=== PATIENT | female | born 1940 | race Caucasian/White ===

== ENCOUNTER → 2016-06-27 | Outpatient (CLI) | payer MEDICARE, OTHER ==
--- NOTE | 2016-06-28 10:39 | REP ---
Chest x-ray: Two views. History: Hypertension. Comparison study April 09, 2010. Findings: A bipolar pacemaker remains in the right heart via the left side. Heart is not enlarged. The aorta is slightly tortuous. The lungs are well inflated and clear. Pleural angles are sharp. There are degenerative changes in the thoracic spine as before. Impression: Pacemaker in place. Otherwise no active disease. Signed by Gurvinder Henson MD 06/28/2016 11:05 A
== END ==
LOC: M WUC 17:05
PROVIDERS: ATTEND Nurse Practitioner Family
DX: I10 Essential (primary) hypertension (principal)

== ENCOUNTER → 2016-07-04 | Outpatient (CLI) | payer MEDICARE, OTHER ==
--- NOTE | 2016-07-04 10:54 | REPMRS ---
Patient History The patient states she had a clinical breast exam in Patient is postmenopausal. Family history of colorectal cancer in mother at age 50 or over and colorectal cancer in maternal grandmother at age 50 or over. Took unspecified hormones for 20 years. Digital Woman Screen Mammo: July 04, 2016 - Exam #: [id number] Bilateral CC and MLO view(s) were taken. Technologist: Angelina Andino, Technologist Prior study comparison: July 04, 2015, digital woman screen mammo performed at [facility]. June 23, 2014, digital woman screen mammo performed at [facility]. June 22, 2013, digital woman screen mammo performed at [facility]. FINDINGS: The breast tissue is heterogeneously dense. This may lower the sensitivity of mammography. There is a moderate amount of heterogeneously dense fibroglandular tissue which is fairly symmetric. There is a pacemaker power plant projecting over the left axilla on the MLO view.There is no interval development of dominant mass, architectural distortion, or clustered microcalcification typical of malignancy. There has been no change in the appearance of the mammogram from the prior studies. ASSESSMENT: BI-RADS/ACR category 1 mammogram. Negative. Recommendation Routine screening mammogram of both breasts in 1 year (for women over age 40). This mammogram was interpreted with the aid of an FDA-approved computer-aided dectection system. Electronically Signed By: Karsten Henson MD 07/04/16 [id number]
--- NOTE | 2016-07-07 11:13 | DEXA ---
AP SPINE L1 - L4 1.408 1.7 3.4 LT FEMUR TOTAL 0.876 -1.0 0.6 RT FEMUR TOTAL 0.897 -0.9 0.7 TOTAL BODY TOTAL OTHER DUAL FEMUR FRAX* ASSESSMENT Risk factors: Premature menopause. 10 year probability of fracture Major osteoporotic fracture 8.8 % Hip fracture 1.0 % COMMENTS: Normal bone densitometry of the spine. Normal bone densitometry of the right hip. There is low bone density of the left hip. The density of the spine is increased 4.5% since the initial exam on 07/2007. The spine density is increased 0.1% since the most recent exam on 06/2013. The density of the left hip has decreased 2.1% since the initial exam on 07/2007. The density of the left hip has decreased 1.2% since the most recent exam on 2013. The density of the right hip has decreased 3.0% since the initial exam on 2007. The density of the right hip has decreased 1.4% since the most recent exam on 2013. FOLLOW-UP: Recommendation for the next bone density exam: 2 years. AMBAR
== END ==
LOC: M WHC 09:42
PROVIDERS: ATTEND Nurse Practitioner Women's Health
DX: Z12.31 Encounter for screening mammogram for malignant neoplasm of breast (principal); Z13.820 Encounter for screening for osteoporosis; Z78.0 Asymptomatic menopausal state; Z80.0 Family history of malignant neoplasm of digestive organs
CPT/HCPCS: 77080; G0202; G0463

== ENCOUNTER → 2016-09-27 | Outpatient (REF) | payer MEDICARE, OTHER | LOC: M LAB REF 18:23 | PROVIDERS: ATTEND Physician Assistant Medical | DX: J02.9 Acute pharyngitis, unspecified (principal) ==

== ENCOUNTER → 2017-08-12 | Outpatient (CLI) | payer MEDICARE, OTHER | LOC: M WHC 09:01 | DX: Z12.31 Encounter for screening mammogram for malignant neoplasm of breast (principal); Z78.0 Asymptomatic menopausal state; Z80.0 Family history of malignant neoplasm of digestive organs; Z92.0 Personal history of contraception; R92.8 Other abnormal and inconclusive findings on diagnostic imaging of breast | CPT/HCPCS: 77067 ==

== ENCOUNTER → 2018-09-14 | Outpatient (CLI) | payer MEDICARE, OTHER ==
[~2018-09-14] MED LIST: APAP500T10 PO; ASPI81TA26 PO; EZET1TAB7 PO; GLUCTAB6 PO; MULT1TAB10 PO; NAPR-855 PO; SERT-138 PO; VITA100067 PO; VITA500T3 PO
--- NOTE | 2018-09-14 11:03 | REPMRS ---
Patient History The patient states she had a clinical breast exam in 09/2018. Family history of colorectal cancer at age 50 or over in mother, colorectal cancer at age 50 or over in maternal grandmother. Took unspecified hormones for 20 years. Digital Woman Screen Mammo: September 14, 2018 - Exam #: [id number] Bilateral CC and MLO view(s) were taken. Technologist: Melissa Ayala, Technologist Prior study comparison: August 12, 2017, digital woman screen mammo performed at [facility]. July 04, 2016, digital woman screen mammo performed at [facility]. July 04, 2015, digital woman screen mammo performed at [facility]. FINDINGS: The breast tissue is heterogeneously dense. This may lower the sensitivity of mammography. Pacemaker power plant is visible in the left axilla. There is a moderate amount of heterogeneously dense fibroglandular tissue which is fairly symmetric. There is no interval development of dominant mass, architectural distortion, or clustered microcalcification typical of malignancy. There has been no change in the appearance of the mammogram from the prior studies. 3-D tomosynthesis shows no additional findings. Assessment: BI-RADS/ACR category 2 mammogram. Benign Findings. Recommendation Routine screening mammogram of both breasts in 1 year (for women over age 40). This patient's Lifetime Breast Cancer RIsk is estimated at 2.6 %. This mammogram was interpreted with the aid of an FDA-approved computer-aided dectection system. Electronically Signed By: Karsten Henson MD 09/14/18 [id number]
== END ==
LOC: M WHC 08:27
PROVIDERS: ATTEND Nurse Practitioner Women's Health
DX: Z12.31 Encounter for screening mammogram for malignant neoplasm of breast (principal); Z80.0 Family history of malignant neoplasm of digestive organs; Z92.29 Personal history of other drug therapy; Z95.0 Presence of cardiac pacemaker
CPT/HCPCS: 77063; 77067; G0463

== ENCOUNTER → 2018-09-28 | Outpatient (CLI) | payer MEDICARE, OTHER ==
[2018-09-28 09:54] LABS: HEMATOCRIT 38.8 % (36.0-47.0); HEMOGLOBIN 12.5 g/dl (12.0-15.5); MEAN CORPUSCULAR HGB CONC 32.2 g/dl (32.0-36.5); PLATELET COUNT, AUTOMATED 274 10^3/uL (150-450); RED BLOOD COUNT 4.31 10^6/uL (4.00-5.40); WHITE BLOOD COUNT 4.6 10^3/uL (4.0-10.0)
[2018-09-28 10:10] LABS: INR 1.06; PROTHROMBIN TIME 13.9 SECONDS (12.1-14.4)
[2018-09-28 10:14] LABS: ALBUMIN 4.3 GM/DL (3.2-5.2); ALT/SGPT 46 U/L (12-78); BILIRUBIN,TOTAL 0.4 MG/DL (0.2-1.0); BLOOD UREA NITROGEN 21 MG/DL (7-18); CALCIUM LEVEL 8.9 MG/DL (8.8-10.2); CARBON DIOXIDE LEVEL 29 MEQ/L (21-32); CHLORIDE LEVEL 107 MEQ/L (98-107); CREATININE FOR GFR 0.83 MG/DL (0.55-1.30); GLOMERULAR FILTRATION RATE > 60.0 (>39); GLUCOSE, FASTING 101 MG/DL (70-100); POTASSIUM SERUM 4.3 MEQ/L (3.5-5.1); SODIUM LEVEL 139 MEQ/L (136-145)
--- NOTE | 2018-09-28 10:38 | REP ---
Chest two views HISTORY: Preop Comparison: 06/27/2016 The lungs are clear. The heart is normal in size. The pulmonary vasculature is normal in appearance. Degenerative change is present in the thoracic spine. A cardiac pacemaker is present. IMPRESSION: No acute disease. Electronically Signed by Aleksey Ricci MD 09/28/2018 10:29 A
[2018-09-28 14:24] LABS: ERYTHROCYTE SEDIMENTATION RATE 25 mm/hr (0-30)
== END ==
LOC: M LAB 09:23
PROVIDERS: ATTEND Family Medicine
DX: Z01.818 Encounter for other preprocedural examination (principal); M16.11 Unilateral primary osteoarthritis, right hip; Z79.82 Long term (current) use of aspirin

== ENCOUNTER 2018-10-08 06:56 | Inpatient (IN) | payer MEDICARE, OTHER ==
--- NOTE | 2018-10-01 10:30 | HPE ---
DATE OF ADMISSION: 10/08/2018 CHIEF COMPLAINT: Right hip pain. ATTENDING PHYSICIAN: Dr. Jos Quintana HISTORY: This is a pleasant 78-year-old female patient with progressively worsening right hip pain and stiffness. She has failed to improve with conservative management. She has [id number] arthritis in the right hip. She has pain with weightbearing activities, daily activities around the house, as well as with going up and down stairs. She has elected for surgery for her continued symptoms. She has consented for a right total hip arthroplasty by Dr. Quintana. Medical optimization pending. ALLERGIES: NO KNOWN DRUG ALLERGIES. CURRENT MEDICATIONS: Daily multivitamin. She takes a daily B12 tablet as well. She takes an aspirin 81 mg once a day, she will discontinue that 5 days prior to surgery. Vytorin 10/40 mg 1 tablet once per day, Zoloft 100 mg one tablet one once per day, vitamin D3, multiple eyedrops, glucosamine chondroitin, [id number]-[id number] Aleve. She will discontinue the Aleve 5 days prior to surgery. She was counseled about discontinuing all NSAIDs five days prior to surgery. Medical conditions include coronary artery disease, tachy-lv syndrome, elevated cholesterol, glaucoma, depression, seasonal allergies. SURGICAL PROCEDURES: She has had a pacemaker implanted. She has had a partial hysterectomy. FAMILY HISTORY: Noncontributory. SOCIAL HISTORY: She does not smoke. She is retired. She does not use alcohol. REVIEW OF SYSTEMS: Denies fever or chills. Denies chest pain, shortness breath or cough. Denies difficulty breathing. Denies abdominal pain. Denies nausea or vomiting. Notes persistent pain in her hip with weightbearing activities and activities of daily living. PHYSICAL EXAMINATION: Physical exam today reveals a well-nourished, well-developed female patient. She ambulates with a slight limping gait favoring the left side. Skin around the right hip is intact. No erythema, edema or ecchymosis. She has some irritability with hip range of motion. Well-perfused right lower extremity. Dorsalis pedis, posterior tibial pulses are palpable. Neck is supple without adenopathy or jugular venous distention (JVD). Lungs are clear to auscultation without rales or wheeze. Heart has regular rate and rhythm. Abdomen is soft and bowel sounds are present. Vital signs: Height 5.2 inches, weight 140 pounds, temperature 97.7, blood pressure 122/63, pulse 70, respirations 18. LABORATORY DATA: WBC count of 4.6, RBC count of 4.3, hemoglobin 12.5, hematocrit 38.8, glucose 101, BUN 20, creatinine 0.83, sodium 134, potassium 4.3, sed rate of 25. Chest x-ray showed no acute cardiopulmonary process noted. Electrocardiogram (EKG) showed sinus rhythm with pacemaker. IMPRESSION: Symptomatic osteoarthritis of her right hip. PLAN: She has consented for a right total hip arthroplasty by Dr. Quintana.
[2018-10-08] VITALS (7 sets, daily range): BP systolic 112–140; BP diastolic 48–68; O2SAT 98
[~2018-10-08] VITALS: Ht 160 cm; Wt 68.8 kg
[2018-10-08] MEDS ORDERED: ACETAMINOPHEN 500 MG TAB PO ONE (07:15)
[2018-10-08] MEDS ORDERED: LR 1,000 ML IV ONE (07:15)
[2018-10-08] MEDS ORDERED: MULTCAP PO (07:36)
[2018-10-08] MEDS ORDERED: VITAD1000T PO (07:36)
[2018-10-08] MEDS ORDERED: ONDANSETRON 4MG/2ML VIAL (J2405) As Ordered ONE ×2 (08:17→12:32)
[2018-10-08] MEDS ORDERED: MIDAZOLAM INJ 2 MG/2 ML VIAL (J2250) As Ordered ONE (08:17)
[2018-10-08] MEDS ORDERED: LIDOCAINE 2% INJ 100 MG/5 ML SDV (FOR ANES.) As Ordered ONE (08:17)
[2018-10-08] MEDS ORDERED: PROPOFOL 200 MG/20 ML VIAL As Ordered ONE (08:17)
[2018-10-08] MEDS ORDERED: fentaNYL 100 MCG/2 ML INJECTION (J3010) As Ordered ONE (08:18)
[2018-10-08] MEDS ORDERED: ceFAZolin 1GM INJ (J0690 PER 500MG) As Ordered ONE (09:43)
[2018-10-08] MEDS ORDERED: MORPHINE 1MG/ML IN 0.9% NACL 100ML IV BAG As Ordered ONE (11:59)
[2018-10-08] MEDS ORDERED: METOCLOPRAMIDE INJ 10MG/2ML VIAL (J2765) As Ordered ONE (12:32)
--- NOTE | 2018-10-08 12:38 | REP ---
Portable AP lateral right hip History: Postop The patient is status post right total hip replacement. There is no acute fracture or dislocation. Subcutaneous air and surgical afshin are present in the overlying soft tissue. Impression: The patient is status post right total hip replacement. There is anatomic alignment. Electronically Signed by Aleksey Ricci MD 10/08/2018 12:29 P
[2018-10-08] MEDS ORDERED: MORPHINE 1MG/ML IN 0.9% NACL 100ML IV BAG IV PRN (13:30)
[2018-10-08] MEDS ORDERED: ONDANSETRON 4MG/2ML VIAL (J2405) IV PRN ×2 (13:30)
[2018-10-08] MEDS: LR 1,000 ML IV SCH (13:30)
[2018-10-08] MEDS ORDERED: ACETAMINOPHEN TAB 650MG DOSE (2X325MG) PO PRN (13:30)
[2018-10-08] MEDS ORDERED: NALBUPHINE HCL 10 MG/ML AMP (J2300) IV PRN (13:30)
[2018-10-08] MEDS ORDERED: NALOXONE INJ 0.4 MG/1 ML VIAL (J2310) IV PRN (13:30)
[2018-10-08] MEDS ORDERED: diphenhydrAMINE INJ 50MG/ML VIAL (J1200) IV PRN (13:30)
[2018-10-08] MEDS ORDERED: METOCLOPRAMIDE INJ 10MG/2ML VIAL (J2765) IV PRN (13:30)
[2018-10-08] MEDS ORDERED: fentaNYL 100 MCG/2 ML INJECTION (J3010) IV PRN (13:30)
[2018-10-08] MEDS ORDERED: LR 1,000 ML IV SCH (13:30)
[2018-10-08] MEDS ORDERED: EPIDURAL/PCA KEYS XX PRN (13:30)
[2018-10-08] MEDS ORDERED: PERCOCET 5MG/325MG TAB PO PRN (13:30)
[2018-10-08] MEDS ORDERED: FLEET ENEMA PR PRN (13:30)
--- NOTE | 2018-10-08 15:39 | CR.PDOC ---
General Date of Consultation: October 08, 2018 Consultation REASON FOR CONSULTATION/CHIEF COMPLAINT: Medical management HISTORY OF PRESENT ILLNESS: 78 yo female POD #0 for right total hip arthroplasty. Consulted by orthopedics for management of medical issues. Currently denies any complaints. Denies chest pain, shortness of breath, headaches, N/V/D, abdominal pain. ALLERGIES: Please see below. HOME MEDICATIONS: Please see below. PAST MEDICAL HISTORY: 1. CAD(?) 2. tachy lv syndrome s/p PPM 3. DLP 4. glaucoma 5. depression 6. seasonal allergies PAST SURGICAL HISTORY: 1. PPM 2. partial hysterectomy REVIEW OF SYSTEMS: Negative except as per HPI. PHYSICAL EXAMINATION: VITAL SIGNS: Please see below. General: NAD, lying comfortably in bed, elderly HEENT: NC/AT, EOMI, PERRL Lungs: CTA B/L Heart: +S1S2, RRR Abd: soft, NT, +BS LABORATORY DATA: Please see below. ASSESSMENT/PLAN: 78 yo female POD #0 for right total hip failing conservative management: #right total hip - follow as per primary team - ortho #CAD #DLP - ezetimibe/simvastatin #glaucoma #depression - sertraline #seasonal allergies #DVT prophylaxis - as per ortho Vital Signs/I&O Vital Signs Date Time Temp Pulse Resp B/P (MAP) Pulse Ox O2 Delivery O2 Flow Rate FiO2 10/08/18 14:40 98.3 73 16 124/55 (78) 99 2 Allergies Coded Allergies: No Known Allergies (Verified , 12/12/02) Home Medications Scheduled Acetaminophen (Acetaminophen) 500 Mg Tab, 500 MG PO QHS, (Reported) Aspirin (Aspirin EC) 81 Mg Tab, 81 MG PO DAILY, #30 (Reported) Cyanocobalamin (Vitamin B-12) (Vitamin B-12) 500 Mcg Tab, 1,000 MCG PO DAILY, (Reported) Ezetimibe/Simvastatin (Ezetimibe-Simvastatin 10-40 mg) 1 Tab Tab, 1 TAB PO DAILY, (Reported) Gluc Kaufman/Chondro Kaufman A/Vit C/Mn (Glucosamine Chondroitin Tab) 1 Tab Tab, 2 TAB PO DAILY, (Reported) Multivitamin (Multivitamins) 1 Each Capsule, 1 CAP PO DAILY, (Reported) Sertraline HCl (Sertraline HCl) 100 Mg Tab, 100 MG PO DAILY, (Reported) Vitamin D (Vitamin D3) 1,000 Unit Tablet, 1,000 UNITS PO DAILY, (Reported) Scheduled PRN Naproxen (Naproxen) 375 Mg Tab, 375 MG PO PRN PRN for PAIN, (Reported) JEREMY BERNSTEIN MD October 08, 2018 15:39
--- NOTE | 2018-10-08 19:15 | RO ---
DATE OF PROCEDURE: 10/08/2018 PREPROCEDURE DIAGNOSIS: Right hip degenerative arthritis. POSTPROCEDURE DIAGNOSIS: Right hip degenerative arthritis. PROCEDURE: Right total hip arthroplasty using a size 5 standard Bussey stem with a +5 neck, 36 head, 52 mm cup with a 36 mm neutral liner. Prosthesis made by [employer]. SURGEON: Dr. Ruchi Quintana CREDIT AND COLLECTIONS ANALYST: Mr. Golden Rivers ANESTHESIA: Spinal. ESTIMATED BLOOD LOSS: 200 mL. SPECIMENS: Femoral head. COMPLICATIONS: None. DESCRIPTION OF PROCEDURE: Antibiotics were given intravenously preoperatively, then successful spinal anesthetic was induced. She was placed in the lateral decubitus position, right hip was upper most, down leg well padded, especially the peroneal nerve, axillary roll was utilized. Right hip area was then carefully prepped and draped in the usual sterile fashion. After appropriate time-out, a longitudinal incision was made for a direct anterolateral approach to the hip. Bovie cautery was used to coagulate crossing vessels down to the tensor fascia, which was divided in line with the skin incision. Then, we split the gluteus medius anterior one-third, posterior two-third junction, dissecting down to the gluteus minimus and anterior hip capsule and carefully dissected down into the joint, carefully dissected those tissues off the anterior aspect of the trochanter as we dislocated the hip anteriorly and placed the leg in the leg bag. Starter reamer was placed in the piriformis fossa, followed by the canal finding reamer, then the lateralizing reamer, then we reamed up to a size 5. Femoral neck osteotomy performed. We broached up to a size 5. We then exposed the acetabulum and performed a labral excision 360 degrees, then began reaming beginning with a 44, advanced up to a 51. The 52 trial fit nicely, thus we asked for the 52 cup, irrigated and then we placed the cup using the extramedullary alignment jig to estimate our abduction and version. I then placed the polyethylene, made sure it seated properly, then exposed the proximal femur again, irrigated out the femoral canal, placed a #5 broach, trialed with first a 1.5 neck length and then we felt there was a little bit excess telescoping but the hip was very stable to flexion internal rotation and extension external rotation; thus, we elected to go with a +5. We removed the trial, copiously irrigated out once again, and then placed the real #5 Bussey stem, dried the trunnion, placed a +5 x 36 mm diameter head, reduced the hip. Irrigated again copiously, closed the gluteus minimus and medius back in layers anatomically with interrupted #1 PDS sutures, irrigated again between layers, closed the tensor fascia with interrupted #1 PDS suture and a running #1 Stratafix. Irrigated again between layers, closed the deep subdermal tissues with interrupted #2-0 PDS suture, skin was closed with afshin, covered by an Optifoam and dry sterile bulky dressing. She was then turned supine, then transferred to the recovery room in stable condition. There were no intraoperative complications. Mr. Golden Rivers was critical to the success of this difficult surgery by helping with appropriate soft tissue retraction, helped to reduce and dislocate the hip, helped to close the wound, amongst many other tasks to allow me to perform the operation smoothly and efficiently.
[2018-10-08] MEDS ORDERED: EZETIMIBE 10 MG TAB (ZETIA) PO SCH (21:00)
[2018-10-08] MEDS ORDERED: SIMVASTATIN 40 MG TAB PO SCH (21:00)
[2018-10-09 01:00] VITALS: O2SAT 96
[2018-10-09 02:00] VITALS: BP 148/69
[2018-10-09] MEDS: LR 1,000 ML IV SCH (02:13)
[2018-10-09 06:00] VITALS: BP 134/63
[2018-10-09] MEDS ORDERED: PERCOCET 5MG/325MG TAB PO PRN ×2 (06:15)
[2018-10-09] MEDS ORDERED: ONDANSETRON 4 MG TAB (S0181) PO PRN (06:15)
[2018-10-09 06:36] LABS: HEMATOCRIT 32.4 % (36.0-47.0); HEMOGLOBIN 10.5 g/dl (12.0-15.5); MEAN CORPUSCULAR HEMOGLOBIN 29.7 pg (27.0-33.0); MEAN CORPUSCULAR HGB CONC 32.4 g/dl (32.0-36.5); MEAN CORPUSCULAR VOLUME 91.5 fl (80.0-96.0); PLATELET COUNT, AUTOMATED 218 10^3/uL (150-450); RED BLOOD COUNT 3.54 10^6/uL (4.00-5.40); WHITE BLOOD COUNT 9.3 10^3/uL (4.0-10.0)
[2018-10-09 06:56] LABS: CALCIUM LEVEL 8.8 MG/DL (8.8-10.2); CREATININE FOR GFR 0.97 MG/DL (0.55-1.30); GLOMERULAR FILTRATION RATE 59.4 (>39); POTASSIUM SERUM 4.3 MEQ/L (3.5-5.1)
[2018-10-09] MEDS ORDERED: XARE10TA PO (07:38)
[2018-10-09] MEDS ORDERED: PERC5TAB12 PO (07:38)
[2018-10-09] MEDS ORDERED: MIRALAX *UNIT DOSE* 17GM PACKET PO SCH (09:00)
[2018-10-09] MEDS ORDERED: MOM 30ML SUSPENSION UDC PO SCH (09:00)
[2018-10-09] MEDS ORDERED: SERTRALINE 100 MG TAB PO SCH (09:00)
[2018-10-09 10:13] VITALS: BP 127/62
[2018-10-09 14:00] VITALS: BP 142/65
[2018-10-09] MEDS ORDERED: RIVAROXABAN 10 MG TAB (XARELTO) PO SCH (18:00)
== END 2018-10-09 15:25 | disposition home or self-care (01) | DRG 470 ==
LOC: M OR 06:56 → MERGE 07:30 → M MS5PR 14:53
PROVIDERS: ADMIT Orthopaedic Surgery; ATTEND Orthopaedic Surgery
PROC: 0SR902Z Replacement of Right Hip Joint with Metal on Polyethylene Synthetic Substitute, Open Approach (ICD-10-PCS; principal; 2018-10-08 09:55)
DX: M16.11 Unilateral primary osteoarthritis, right hip (principal); I25.10 Atherosclerotic heart disease of native coronary artery without angina pectoris; E78.00 Pure hypercholesterolemia, unspecified; H40.9 Unspecified glaucoma; F32.9 Major depressive disorder, single episode, unspecified; R26.89 Other abnormalities of gait and mobility; J30.2 Other seasonal allergic rhinitis; Z95.0 Presence of cardiac pacemaker; Z79.82 Long term (current) use of aspirin; Z79.899 Other long term (current) drug therapy

== ENCOUNTER → 2019-03-28 | Outpatient (CLI) | payer MEDICARE, OTHER ==
[~2019-03-28] MED LIST changes: +CHOL100029 PO; +CYAN500T8 PO; -EZET1TAB7 PO; +EZET1TAB8 PO; +MULTCAP PO; +PERC5TAB12 PO; -VITA500T3 PO; +XARE10TA PO
[2019-03-28 10:48] LABS: ALBUMIN 4.1 GM/DL (3.2-5.2); ALT/SGPT 37 U/L (12-78); BILIRUBIN,TOTAL 0.4 MG/DL (0.2-1.0); BLOOD UREA NITROGEN 17 MG/DL (7-18); CALCIUM LEVEL 9.5 MG/DL (8.8-10.2); CARBON DIOXIDE LEVEL 30 MEQ/L (21-32); CHLORIDE LEVEL 107 MEQ/L (98-107); CHOLESTEROL LEVEL 163 MG/DL (<200); CHOLESTEROL RISK RATIO 3.134 (<5); CREATININE FOR GFR 0.92 MG/DL (0.55-1.30); FREE T4 0.78 NG/DL (0.76-1.46); GLOMERULAR FILTRATION RATE > 60.0 (>39); GLUCOSE, FASTING 98 MG/DL (70-100); HDL CHOLESTEROL 52 MG/DL (>40); LDL CHOLESTEROL 62 MG/DL (<100); NON-HDL-C 111 MG/DL; POTASSIUM SERUM 4.5 MEQ/L (3.5-5.1); SODIUM LEVEL 140 MEQ/L (136-145); TRIGLYCERIDES LEVEL 246 MG/DL (<150)
[2019-03-28 11:02] LABS: TOTAL 25(OH) VITAMIN D 49.9 NG/ML (30.0-100.0)
== END ==
LOC: M LAB 09:07
PROVIDERS: ATTEND Nurse Practitioner Family
DX: E78.2 Mixed hyperlipidemia (principal); F32.9 Major depressive disorder, single episode, unspecified; Z79.899 Other long term (current) drug therapy

== ENCOUNTER → 2019-09-26 | Outpatient (REF) | payer MEDICARE, OTHER ==
[2019-09-26 11:06] LABS: ALBUMIN 4.1 GM/DL (3.2-5.2); ALT/SGPT 40 U/L (12-78); BILIRUBIN,TOTAL 0.4 MG/DL (0.2-1.0); BLOOD UREA NITROGEN 21 MG/DL (7-18); CALCIUM LEVEL 9.4 MG/DL (8.8-10.2); CARBON DIOXIDE LEVEL 27 MEQ/L (21-32); CHLORIDE LEVEL 107 MEQ/L (98-107); CHOLESTEROL LEVEL 150 MG/DL (<200); CHOLESTEROL RISK RATIO 3.061 (<5); CREATININE FOR GFR 0.89 MG/DL (0.55-1.30); GLOMERULAR FILTRATION RATE > 60.0 (>39); GLUCOSE, FASTING 97 MG/DL (70-100); HDL CHOLESTEROL 49 MG/DL (>40); LDL CHOLESTEROL 65 MG/DL (<100); NON-HDL-C 101 MG/DL; POTASSIUM SERUM 4.7 MEQ/L (3.5-5.1); SODIUM LEVEL 139 MEQ/L (136-145); TOTAL PROTEIN 7.6 GM/DL (6.4-8.2); TRIGLYCERIDES LEVEL 180 MG/DL (<150)
== END ==
LOC: M PLALAB 09:01
PROVIDERS: ATTEND Nurse Practitioner Family
DX: E78.2 Mixed hyperlipidemia (principal)

== ENCOUNTER → 2019-12-06 | Outpatient (CLI) | payer MEDICARE, OTHER ==
--- NOTE | 2019-12-06 11:16 | REPMRS ---
Patient History The patient states she had a clinical breast exam in November 2019.Family history of colorectal cancer at age 50 or over in mother, colorectal cancer at age 50 or over in maternal grandmother. Took unspecified hormones for 20 years. Digital Woman Screen Mammo: December 06, 2019 - Exam #: [id number] Bilateral CC and MLO view(s) were taken. Technologist: Chelsea Lawson, Technologist Prior study comparison: September 14, 2018, bilateral digital woman screen mammo performed at [facility]. August 12, 2017, digital woman screen mammo performed at [facility]. July 04, 2016, digital woman screen mammo performed at [facility]. FINDINGS: The breast tissue is heterogeneously dense. This may lower the sensitivity of mammography. [facility]. There is a pacemaker power plant projecting over the left axilla on the MLO view. There is a moderate amount of heterogeneously dense fibroglandular tissue which is fairly symmetric. There is no interval development of dominant mass, architectural distortion, or grouped microcalcification typical of malignancy. There has been no change in the appearance of the mammogram from the prior studies. 3-D tomosynthesis shows no additional findings. Assessment: BI-RADS/ACR category 2 mammogram. Benign Findings. Recommendation Routine screening mammogram of both breasts in 1 year (for women over age 40). This patient's Lifetime Breast Cancer RIsk is estimated at 2.3 %. This mammogram was interpreted with the aid of an FDA-approved computer-aided dectection system. Electronically Signed By: Karsten Henson MD 12/06/19 [id number]
--- NOTE | 2019-12-09 14:13 | DEXA ---
AP SPINE L1 - L4 1.386 1.5 3.3 LT FEMUR TOTAL 0.842 -1.3 0.7 LT NECK RT FEMUR TOTAL RT NECK TOTAL BODY TOTAL OTHER COMMENTS: Normal bone densitometry of the spine. There is low bone density of the left hip. The density of the spine is increased 2.8% since the initial exam on 07/22/2007. The decreased 1.6% since the most recent exam on 07/04/2016. The density of the left hip has decreased 5.9% since the initial exam on 07/22/2007. The density of the left hip has decreased 3.9% since the most recent exam on 07/04/2016. Hip replaced last year 2018. FOLLOW-UP: Recommendation for the next bone density exam: 2 years. AMBAR
== END ==
LOC: M WHC 09:19
PROVIDERS: ATTEND Nurse Practitioner Women's Health
DX: Z12.31 Encounter for screening mammogram for malignant neoplasm of breast (principal); Z78.0 Asymptomatic menopausal state; M85.80 Other specified disorders of bone density and structure, unspecified site; Z80.0 Family history of malignant neoplasm of digestive organs; Z92.29 Personal history of other drug therapy; Z95.0 Presence of cardiac pacemaker
CPT/HCPCS: 77063; 77067; 77080; G0463

== ENCOUNTER → 2020-03-13 | Outpatient (REF) | payer MEDICARE, OTHER ==
[2020-03-13 14:48] LABS: ALBUMIN 4.3 GM/DL (3.2-5.2); ALT/SGPT 41 U/L (12-78); BILIRUBIN,TOTAL 0.4 MG/DL (0.2-1.0); BLOOD UREA NITROGEN 20 MG/DL (7-18); CALCIUM LEVEL 9.2 MG/DL (8.8-10.2); CARBON DIOXIDE LEVEL 28 MEQ/L (21-32); CHLORIDE LEVEL 107 MEQ/L (98-107); CHOLESTEROL LEVEL 166 MG/DL (<200); CHOLESTEROL RISK RATIO 2.964 (<5); FREE T4 0.81 NG/DL (0.76-1.46); GLOMERULAR FILTRATION RATE > 60.0 (>39); GLUCOSE, FASTING 102 MG/DL (70-100); HDL CHOLESTEROL 56 MG/DL (>40); LDL CHOLESTEROL 69 MG/DL (<100); NON-HDL-C 110 MG/DL; POTASSIUM SERUM 4.9 MEQ/L (3.5-5.1); SODIUM LEVEL 140 MEQ/L (136-145); TOTAL PROTEIN 7.6 GM/DL (6.4-8.2); TRIGLYCERIDES LEVEL 207 MG/DL (<150)
== END ==
LOC: M PLALAB 08:37
PROVIDERS: ATTEND Nurse Practitioner Family
DX: E78.2 Mixed hyperlipidemia (principal); F32.9 Major depressive disorder, single episode, unspecified

== ENCOUNTER → 2020-03-14 | Outpatient (REF) | payer MEDICARE, OTHER ==
[2020-03-15 14:50] LABS: CREATININE, URINE 43.5 MG/DL; MALB URINE SIEMENS < 5.0 MG/L; MAU/CREAT RATIO 11.4 MCG/MG (0.0-30.0)
== END ==
LOC: M SFHCPLAZ 13:30
PROVIDERS: ATTEND Nurse Practitioner Family
DX: E78.2 Mixed hyperlipidemia (principal)

== ENCOUNTER → 2020-09-04 | Outpatient (REF) | payer MEDICARE, OTHER ==
[~2020-09-04] MED LIST changes: +BRIM1OPD OU; +CYAN500T14 PO; -CYAN500T8 PO; +LATA0.0015 OU
== END ==
LOC: M SFHCWAGY 17:02
PROVIDERS: ATTEND Nurse Practitioner Women's Health
DX: R35.0 Frequency of micturition (principal)
CPT/HCPCS: 81002; 87086; G0463

== ENCOUNTER → 2020-09-17 | Outpatient (REF) | payer MEDICARE, OTHER ==
[~2020-09-17] MED LIST changes: -BRIM1OPD OU; -LATA0.0015 OU
[2020-09-17 11:28] LABS: ALT/SGPT 42 U/L (12-78); BILIRUBIN,TOTAL 0.3 MG/DL (0.2-1.0); BLOOD UREA NITROGEN 21 MG/DL (7-18); CALCIUM LEVEL 9.6 MG/DL (8.8-10.2); CARBON DIOXIDE LEVEL 27 MEQ/L (21-32); CHLORIDE LEVEL 108 MEQ/L (98-107); CHOLESTEROL LEVEL 155 MG/DL (<200); CHOLESTEROL RISK RATIO 2.719 (<5); CREATININE FOR GFR 0.79 MG/DL (0.55-1.30); GLOMERULAR FILTRATION RATE > 60.0 (>39); GLUCOSE, FASTING 108 MG/DL (70-100); HDL CHOLESTEROL 57 MG/DL (>40); LDL CHOLESTEROL 66 MG/DL (<100); NON-HDL-C 98 MG/DL; POTASSIUM SERUM 4.8 MEQ/L (3.5-5.1); SODIUM LEVEL 140 MEQ/L (136-145); TOTAL PROTEIN 7.6 GM/DL (6.4-8.2); TRIGLYCERIDES LEVEL 159 MG/DL (<150)
[2020-09-17 11:35] LABS: HEMOGLOBIN A1c 5.7 %
== END ==
LOC: M PLALAB 08:30
PROVIDERS: ATTEND Nurse Practitioner Family
DX: E78.2 Mixed hyperlipidemia (principal); R73.01 Impaired fasting glucose

== ENCOUNTER 2020-09-27 13:09 | Day surgery (SDC) | payer MEDICARE, OTHER ==
[~2020-09-27] VITALS: Ht 160 cm; Wt 63.1 kg
[2020-09-27] MEDS ORDERED: ceFAZolin SOD 1 GM in D5W MINI-BAG PLUS 50 ML IV ONE (13:35)
[2020-09-27] MEDS ORDERED: LATA0.0015 OU (14:00)
[2020-09-27] MEDS ORDERED: BRIM1OPD OU (14:00)
[2020-09-27] MEDS ORDERED: LIDOCAINE 1% SDV 30ML VIAL As Ordered ONE (15:37)
[2020-09-27] MEDS ORDERED: BACITRACIN OINTMENT 30GM TUBE As Ordered ONE (15:37)
[2020-09-27] MEDS ORDERED: BACITRACIN PWD 50,000 UNITS VIAL As Ordered ONE (15:38)
[2020-09-27] MEDS ORDERED: fentaNYL 100 MCG/2 ML INJECTION (J3010) As Ordered ONE (16:38)
[2020-09-27] MEDS ORDERED: LIDOCAINE 2% 100MG/5ML SDV (FOR ANES.) As Ordered ONE (16:38)
[2020-09-27] MEDS ORDERED: propofoL 200 MG/20 ML VIAL As Ordered ONE (16:38)
[2020-09-27] MEDS ORDERED: MIDAZOLAM INJ 2MG/2ML VIAL (J2250 PER 1MG) As Ordered ONE (16:38)
[2020-09-27] MEDS ORDERED: ceFAZolin 1GM VIAL (J0690 PER 500MG) As Ordered ONE (17:06)
[2020-09-27 18:06] VITALS: BP 161/74
--- NOTE | 2020-09-27 18:06 | RO ---
OPERATIVE NOTE DATE OF OPERATION: 09/27/2020 PREOPERATIVE DIAGNOSES: 1. Pacemaker batter depletion. 2. Underlying tachy-lv syndrome. POSTOPERATIVE DIAGNOSIS: 1. Pacemaker batter depletion. 2. Underlying tachy-lv syndrome. PROCEDURES: 1. Explantation of depleted dual-chamber pulse generator. 2. Testing of old atrial and ventricular pacing leads. 3. Implantation of new dual-chamber pulse generator. IMPLANTING LEAD TANK MECHANIC: Orlando Wheeler M.D. ANESTHESIOLOGIST: Phillip Keller Jr., DO ANESTHESIA: Monitored local. CLINICAL SUMMARY: This 80-year-old resident of [facility] is well known to our cardiology practice having had tachy-lv syndrome with syncopal spell leading to dual-chamber pacemaker implant initially 11/2002. She underwent first a pacemaker generator replacement 11/2009, and has been followed closely through our office. Recently found to have her current pacemaker at the elective replacement indicator. Has been feeling unrestricted, walking on a regular basis, and doing housework and shopping without chest pain, shortness of breath, palpitations, or claudication. No dizzy spells. Pleasant bright elderly lady of medium body build laying comfortably. Heart rate 64 BPM and regular. Blood pressure 118/66 supine. Respiratory rate 16. BMI 24.4. No pallor or cyanosis. Normal oral mucosa. Trachea midline. Neck veins 2 cm from the sternal angle. Normal chest configuration and chest expansion with well-healed pacemaker incision left subclavian region. Normal apical impulse and heart sounds. No audible murmur. Normal carotid upstrokes and volume. No bruits. No dependent edema. Peripheral pulses were symmetrical and normal. Her abdomen was soft. EKG on 08/30/2020, showed sinus rhythm at 65 BPM with first-degree AV block. Current pacemaker sensing and inhibited. Left atrial conduction disturbance. Poor precordial R-wave progression. No change from 08/31/2019. Blood work 03/13/2020, showed normal complete blood count. Electrolyte balance with potassium of 4.9, BUN 20, creatinine 0.9, random glucose 102. TSH was normal at 2.66. DESCRIPTION OF PROCEDURE: With the patient in the fasting state having signed informed consent and having received Ancef 2 grams IV premedication, she was taken to the operating theatre. Numerous skin electrodes were applied to facilitate continuous electrocardiographic monitoring. The left subclavian region was prepped and draped in the usual fashion. The skin over her old pacemaker incision in the left subclavian region was infiltrated with 1% Xylocaine and a 5 cm linear incision was made over the same site. Careful dissection was then carried down to the pacemaker, which was then explanted ([employer], Model No. MK1818, Serial No. [id number]; implanted 12/04/2009). The old pacing leads were then disconnected and tested individually. The right ventricular lead ([employer], Model No. 1388T/58, Serial No. [id number]) measurements were: Stimulation threshold 2.1 V 0.4 ms/impedance 206 ohms. The R wave amplitude measured 4.2 mV. The atrial lead ([employer], Model No. 1388T/52, Serial No. [id number]) measurements were: Stimulation threshold 0.6 V 0.4 ms/impedance 354 ohms. The P wave amplitude measured 2.3 mV. The old pacer pocket was thoroughly irrigated with bacitracin solution. The old pacing leads were then connected to a new dual-chamber pulse generator ([employer] Assurity MRI compatible, Model No. 2272, Serial No. [id number]) and appropriate DDD pacing was documented. The device currently is sensing and inhibited. The subcutaneous tissues were approximated using a running chromic suture once the device was placed in the pocket. The skin was closed using afshin. A dry dressing was applied and the patient was returned to advance recovery in good condition. ESTIMATED BLOOD LOSS: 1 mL. COMPLICATIONS: None apparent. POSTOPERATIVE PLAN: Once the patient is alert and ambulatory, she will be able to be discharged home. POSTOPERATIVE DIET: Resume as preoperatively; low-fat and low-cholesterol. POSTOPERATIVE ACTIVITY: We will request that she perform only light activities of daily living with her left arm and avoid getting her incision wet until her afshin are removed in our office in 7-10 days time. My office will be contacting her in the morning with that appointment. POSTOPERATIVE MEDICATIONS: Will resume Vytorin 10-40 one tablet daily, aspirin 81 mg daily, Zoloft 100 mg daily, multivitamin daily, vitamin B12 one tablet daily, vitamin D3 at 1000 international units daily, Aleve 220 mg one or two tablets p.r.n. arthritic pain, glucosamine chondroitin two tablets daily, Alphagan and Restasis eye drops as preop. We request that she contact us promptly for any abnormal erythema, swelling, or discharge from her incision. AMBAR
== END 2020-09-27 18:11 | disposition home or self-care (01) ==
LOC: M SDC 13:09
PROVIDERS: ATTEND Internal Medicine Cardiovascular Disease
DX: Z45.010 Encounter for checking and testing of cardiac pacemaker pulse generator [battery] (principal); I49.5 Sick sinus syndrome; E78.5 Hyperlipidemia, unspecified; R94.31 Abnormal electrocardiogram [ECG] [EKG]; F32.9 Major depressive disorder, single episode, unspecified; J30.1 Allergic rhinitis due to pollen; Z79.899 Other long term (current) drug therapy; Z79.82 Long term (current) use of aspirin
CPT/HCPCS: 33228; C1785; J0690; J2250; J3010; U0002

== ENCOUNTER → 2020-12-11 | Outpatient (CLI) | payer MEDICARE, OTHER ==
[~2020-12-11] MED LIST changes: +BRIM1OPD OU; -EZET1TAB8 PO; +EZET1TAB98 PO; +LATA0.0015 OU
--- NOTE | 2020-12-11 09:19 | REPMRS ---
Patient History The patient states she had a clinical breast exam in December 2020. Family history of colorectal cancer at age 50 or over in mother, colorectal cancer at age 50 or over in maternal grandmother. Took unspecified hormones for 20 years. Tomosynthesis is performed. Volpara breast density is c. [facility] lifetime risk of breast cancer 2.0%. Moderna vaccine 07/17/20 left arm, 08/14/20 left arm. Patient states no breast complaints today. Patient has signed MRS History Sheet. Digital Woman Screen Mammo: December 11, 2020 - Exam #: [id number] Bilateral CC and MLO view(s) were taken. Technologist: RT Conner Prior study comparison: December 06, 2019, bilateral digital woman screen mammo performed at [facility]. September 14, 2018, bilateral digital woman screen mammo performed at [facility]. FINDINGS: The breast tissue is heterogeneously dense. This may lower the sensitivity of mammography. There has been no change in the appearance of the mammogram from the prior studies. There is a moderate amount of residual fibroglandular tissue which is fairly symmetric. There is no interval development of dominant mass, areas of architectural distortion, or clustered microcalcification typical of malignancy. Assessment: BI-RADS/ACR category 1 mammogram. Negative Mammogram. Recommendation Routine screening mammogram in 1 year (for women over age 40). This mammogram was interpreted with the aid of an FDA-approved computer-aided dectection system. Electronically Signed By: Juan Lord MD 12/11/20 0919
== END ==
LOC: M WHC 07:54
PROVIDERS: ATTEND Nurse Practitioner Women's Health
DX: Z12.31 Encounter for screening mammogram for malignant neoplasm of breast (principal); Z80.0 Family history of malignant neoplasm of digestive organs; Z92.29 Personal history of other drug therapy
CPT/HCPCS: 77063; 77067; G0463

== ENCOUNTER → 2021-03-13 | Outpatient (CLI) | payer MEDICARE, OTHER ==
[2021-03-13 11:17] LABS: MALB URINE SIEMENS 20.7 MG/L; MAU/CREAT RATIO 12.4 MCG/MG (0.0-30.0)
[2021-03-13 11:19] LABS: BLOOD UREA NITROGEN 21 MG/DL (7-18); CALCIUM LEVEL 9.5 MG/DL (8.8-10.2); CARBON DIOXIDE LEVEL 28 MEQ/L (21-32); CHLORIDE LEVEL 108 MEQ/L (98-107); CREATININE FOR GFR 0.92 MG/DL (0.55-1.30); GLOMERULAR FILTRATION RATE > 60.0 (>39); GLUCOSE, FASTING 101 MG/DL (70-100); POTASSIUM SERUM 4.8 MEQ/L (3.5-5.1); SODIUM LEVEL 140 MEQ/L (136-145)
[2021-03-13 15:37] LABS: HEMOGLOBIN A1c 5.5 %
== END ==
LOC: M PLALAB 08:13
PROVIDERS: ATTEND Nurse Practitioner Family
DX: R73.03 Prediabetes (principal)

== ENCOUNTER → 2021-08-28 | Outpatient (CLI) | payer MEDICARE, OTHER ==
[2021-08-28 12:34] LABS: ALBUMIN 4.2 GM/DL (3.2-5.2); ALT/SGPT 39 U/L (12-78); BILIRUBIN,TOTAL 0.3 MG/DL (0.2-1.0); BLOOD UREA NITROGEN 21 MG/DL (7-18); CALCIUM LEVEL 9.3 MG/DL (8.8-10.2); CARBON DIOXIDE LEVEL 29 MEQ/L (21-32); CHLORIDE LEVEL 107 MEQ/L (98-107); CHOLESTEROL LEVEL 152 MG/DL (<200); CREATININE FOR GFR 0.92 MG/DL (0.55-1.30); GLOMERULAR FILTRATION RATE > 60.0 (>39); GLUCOSE, FASTING 93 MG/DL (70-100); HDL CHOLESTEROL 50 MG/DL (>40); LDL CHOLESTEROL 62 MG/DL (<100); NON-HDL-C 102 MG/DL; POTASSIUM SERUM 4.8 MEQ/L (3.5-5.1); SODIUM LEVEL 138 MEQ/L (136-145); TOTAL PROTEIN 7.5 GM/DL (6.4-8.2); TRIGLYCERIDES LEVEL 201 MG/DL (<150)
[2021-08-28 12:52] LABS: HEMOGLOBIN A1c 5.4 %
== END ==
LOC: M PLALAB 08:20
PROVIDERS: ATTEND Nurse Practitioner Adult Health
DX: Z13.29 Encounter for screening for other suspected endocrine disorder (principal); E78.2 Mixed hyperlipidemia; R73.01 Impaired fasting glucose

== ENCOUNTER → 2022-03-06 | Outpatient (REF) | payer MEDICARE, OTHER ==
[~2022-03-06] MED LIST changes: -GLUCTAB6 PO; +GLUCTAB7 PO
== END ==
LOC: M SFHCPLAZ 16:36
PROVIDERS: ATTEND Nurse Practitioner Adult Health
DX: R73.01 Impaired fasting glucose (principal); F32.9 Major depressive disorder, single episode, unspecified; E78.2 Mixed hyperlipidemia; Z53.8 Procedure and treatment not carried out for other reasons

== ENCOUNTER → 2022-03-07 | Outpatient (CLI) | payer MEDICARE, OTHER ==
[2022-03-07 11:27] LABS: HEMOGLOBIN A1c 5.7 %
[2022-03-07 12:09] LABS: ALBUMIN 4.4 GM/DL (3.2-5.2); ALT/SGPT 44 U/L (12-78); BILIRUBIN,TOTAL 0.3 MG/DL (0.2-1.0); BLOOD UREA NITROGEN 21 MG/DL (7-18); CALCIUM LEVEL 9.7 MG/DL (8.8-10.2); CARBON DIOXIDE LEVEL 29 MEQ/L (21-32); CHLORIDE LEVEL 105 MEQ/L (98-107); CHOLESTEROL LEVEL 151 MG/DL (<200); CHOLESTEROL RISK RATIO 2.796 (<5); CREATININE FOR GFR 0.89 MG/DL (0.55-1.30); FREE T4 0.79 NG/DL (0.76-1.46); GLOMERULAR FILTRATION RATE > 60.0 (>39); GLUCOSE, FASTING 101 MG/DL (70-100); HDL CHOLESTEROL 54 MG/DL (>40); LDL CHOLESTEROL 51 MG/DL (<100); NON-HDL-C 97 MG/DL; POTASSIUM SERUM 4.5 MEQ/L (3.5-5.1); SODIUM LEVEL 137 MEQ/L (136-145); TOTAL PROTEIN 7.9 GM/DL (6.4-8.2); TRIGLYCERIDES LEVEL 228 MG/DL (<150)
== END ==
LOC: M PLALAB 07:53
PROVIDERS: ATTEND Nurse Practitioner Adult Health
DX: R73.01 Impaired fasting glucose (principal); F32.9 Major depressive disorder, single episode, unspecified; E78.2 Mixed hyperlipidemia; Z79.899 Other long term (current) drug therapy

== ENCOUNTER → 2022-04-09 | Outpatient (CLI) | payer MEDICARE, OTHER | LOC: M WHC 10:38 | PROVIDERS: ATTEND Nurse Practitioner Adult Health | DX: Z12.31 Encounter for screening mammogram for malignant neoplasm of breast (principal); Z13.820 Encounter for screening for osteoporosis; Z78.0 Asymptomatic menopausal state; M85.852 Other specified disorders of bone density and structure, left thigh ==

== ENCOUNTER → 2022-09-01 | Outpatient (CLI) | payer MEDICARE, OTHER ==
[2022-09-01 11:04] LABS: HEMOGLOBIN A1c 5.5 % (4.0-6.0)
[2022-09-01 11:11] LABS: ALBUMIN 4.3 G/DL (3.2-5.2); ALKALINE PHOSPHATASE 67 U/L (46-116); ALT/SGPT 39 U/L (7.0-40); AST/SGOT 26 U/L (<34); BILIRUBIN,TOTAL 0.4 MG/DL (0.3-1.2); BLOOD UREA NITROGEN 20 MG/DL (9-23); CALCIUM LEVEL 9.8 MG/DL (8.3-10.6); CARBON DIOXIDE LEVEL 29 MMOL/L (20-31); CHLORIDE LEVEL 106 MMOL/L (98-107); CHOLESTEROL LEVEL 150 MG/DL (<200); CHOLESTEROL RISK RATIO 2.87 (<5); CREATININE FOR GFR 0.82 MG/DL (0.55-1.30); GLOMERULAR FILTRATION RATE > 60.0 (>32); GLUCOSE, FASTING 94 MG/DL (74-106); HDL CHOLESTEROL 52.1 MG/DL (>40); LDL CHOLESTEROL 47.7 MG/DL (<100); NON-HDL-C 97.9 MG/DL; POTASSIUM SERUM 4.8 MMOL/L (3.5-5.1); SODIUM LEVEL 141 MMOL/L (136-145); TOTAL PROTEIN 7.5 G/DL (5.7-8.2); TRIGLYCERIDES LEVEL 251 MG/DL (<150)
[2022-09-01 11:12] LABS: THYROID STIMULATING HORMONE 3.919 uIU/ML (0.55-4.78); TOTAL 25(OH) VITAMIN D 53.1 NG/ML (20.0-100.0)
== END ==
LOC: M PLALAB 08:56
PROVIDERS: ATTEND Nurse Practitioner Adult Health
DX: E78.2 Mixed hyperlipidemia (principal); R73.01 Impaired fasting glucose; F32.9 Major depressive disorder, single episode, unspecified; Z13.29 Encounter for screening for other suspected endocrine disorder

== ENCOUNTER → 2023-02-27 | Outpatient (CLI) | payer MEDICARE, OTHER ==
[2023-02-27 10:45] LABS: THYROID STIMULATING HORMONE 3.824 uIU/ML (0.55-4.78)
[2023-02-27 10:46] LABS: ALBUMIN 4.2 G/DL (3.2-5.2); ALKALINE PHOSPHATASE 65 U/L (46-116); ALT/SGPT 32 U/L (7.0-40); AST/SGOT 26 U/L (<34); BILIRUBIN,TOTAL 0.4 MG/DL (0.3-1.2); BLOOD UREA NITROGEN 22 MG/DL (9-23); CALCIUM LEVEL 9.4 MG/DL (8.3-10.6); CARBON DIOXIDE LEVEL 27 MMOL/L (20-31); CHLORIDE LEVEL 107 MMOL/L (98-107); CREATININE FOR GFR 0.78 MG/DL (0.55-1.30); GLOMERULAR FILTRATION RATE > 60.0 (>32); GLUCOSE, FASTING 94 MG/DL (74-106); POTASSIUM SERUM 4.5 MMOL/L (3.5-5.1); SODIUM LEVEL 141 MMOL/L (136-145); TOTAL 25(OH) VITAMIN D 57.9 NG/ML (20.0-100.0); TOTAL PROTEIN 7.3 G/DL (5.7-8.2)
== END ==
LOC: M PLALAB 08:37
PROVIDERS: ATTEND Nurse Practitioner Adult Health
DX: F32.9 Major depressive disorder, single episode, unspecified (principal); R73.01 Impaired fasting glucose; Z13.29 Encounter for screening for other suspected endocrine disorder

== ENCOUNTER → 2023-04-13 | Outpatient (CLI) | payer MEDICARE, OTHER | LOC: M WHC 09:40 | PROVIDERS: ATTEND Nurse Practitioner Adult Health | DX: Z12.31 Encounter for screening mammogram for malignant neoplasm of breast (principal) ==

== ENCOUNTER → 2023-09-15 | Outpatient (CLI) | payer MEDICARE, OTHER ==
[2023-09-15 12:00] LABS: ALBUMIN 4.2 G/DL (3.2-5.2); ALKALINE PHOSPHATASE 68 U/L (46-116); ALT/SGPT 37 U/L (7.0-40); AST/SGOT 23 U/L (<34); BILIRUBIN,TOTAL 0.4 MG/DL (0.3-1.2); BLOOD UREA NITROGEN 22 MG/DL (9-23); CALCIUM LEVEL 9.3 MG/DL (8.3-10.6); CARBON DIOXIDE LEVEL 28 MMOL/L (20-31); CHLORIDE LEVEL 107 MMOL/L (98-107); CREATININE FOR GFR 0.93 MG/DL (0.55-1.30); GLOMERULAR FILTRATION RATE > 60.0 (>32); GLUCOSE, FASTING 109 MG/DL (74-106); POTASSIUM SERUM 4.8 MMOL/L (3.5-5.1); SODIUM LEVEL 141 MMOL/L (136-145); THYROID STIMULATING HORMONE 2.754 uIU/ML (0.55-4.78); TOTAL PROTEIN 7.2 G/DL (5.7-8.2)
[2023-09-15 12:01] LABS: TOTAL 25(OH) VITAMIN D 56.4 NG/ML (20.0-100.0)
[2023-09-15 12:13] LABS: HEMOGLOBIN A1c 5.3 % (4.0-6.0)
== END ==
LOC: M PLALAB 08:59
PROVIDERS: ATTEND Nurse Practitioner Adult Health
DX: F32.9 Major depressive disorder, single episode, unspecified (principal); Z13.29 Encounter for screening for other suspected endocrine disorder; R73.01 Impaired fasting glucose; Z79.899 Other long term (current) drug therapy

== ENCOUNTER → 2024-03-14 | Outpatient (REF) | payer MEDICARE, OTHER ==
[2024-03-14 13:50] LABS: ALBUMIN 4.1 G/DL (3.2-5.2); ALKALINE PHOSPHATASE 65 U/L (46-116); ALT/SGPT 33 U/L (7.0-40); AST/SGOT 20 U/L (<34); BILIRUBIN,TOTAL 0.4 MG/DL (0.3-1.2); BLOOD UREA NITROGEN 15 MG/DL (9-23); CALCIUM LEVEL 9.7 MG/DL (8.3-10.6); CARBON DIOXIDE LEVEL 28 MMOL/L (20-31); CHLORIDE LEVEL 106 MMOL/L (98-107); CHOLESTEROL LEVEL 145 MG/DL (<200); CHOLESTEROL RISK RATIO 3.11 (<5); CREATININE FOR GFR 0.89 MG/DL (0.55-1.30); GLOMERULAR FILTRATION RATE > 60.0 (>32); GLUCOSE, FASTING 113 MG/DL (74-106); HDL CHOLESTEROL 46.5 MG/DL (>40); LDL CHOLESTEROL 63.9 MG/DL (<100); NON-HDL-C 98.5 MG/DL; POTASSIUM SERUM 4.5 MMOL/L (3.5-5.1); SODIUM LEVEL 142 MMOL/L (136-145); TOTAL PROTEIN 7.4 G/DL (5.7-8.2); TRIGLYCERIDES LEVEL 173 MG/DL (<150)
[2024-03-14 13:53] LABS: TOTAL 25(OH) VITAMIN D 67.2 NG/ML (20.0-100.0); VITAMIN B12 LEVEL > 2000 PG/ML (211-911)
[2024-03-14 14:03] LABS: HEMOGLOBIN A1c 5.4 % (4.0-6.0)
== END ==
LOC: M SFHCADAM 09:16
PROVIDERS: ATTEND Family Medicine
DX: E78.2 Mixed hyperlipidemia (principal); R73.01 Impaired fasting glucose; Z13.21 Encounter for screening for nutritional disorder; Z79.899 Other long term (current) drug therapy

== ENCOUNTER → 2024-07-25 | Outpatient (CLI) | payer MEDICARE, OTHER | LOC: M WHC 08:53 | PROVIDERS: ATTEND Family Medicine | DX: Z12.31 Encounter for screening mammogram for malignant neoplasm of breast (principal) ==

== ENCOUNTER → 2025-03-22 | Outpatient (REF) | payer MEDICARE, OTHER ==
[~2025-03-22] MED LIST changes: -BRIM1OPD OU; +BRIM5DRO25 OU
[2025-03-22 14:46] LABS: ALT/SGPT 30.0 U/L (7.0-40); AST/SGOT 25.0 U/L (<34); CALCIUM LEVEL 9.6 MG/DL (8.3-10.6); CARBON DIOXIDE LEVEL 27.0 MMOL/L (20-31); CHLORIDE LEVEL 107.0 MMOL/L (98-107); CHOLESTEROL LEVEL 154.0 MG/DL (<200); CHOLESTEROL RISK RATIO 2.8 (<5); CREATININE FOR GFR 0.93 MG/DL (0.55-1.30); FREE T4 1.08 NG/DL (0.89-1.76); GLOMERULAR FILTRATION RATE 61.4 (>32); LDL CHOLESTEROL 69.2 MG/DL (<100); NON-HDL-C 99.0 MG/DL; POTASSIUM SERUM 4.9 MMOL/L (3.5-5.1); SODIUM LEVEL 143.0 MMOL/L (136-145); TRIGLYCERIDES LEVEL 149.0 MG/DL (<150)
[2025-03-22 14:47] LABS: PLATELET COUNT, AUTOMATED 274 10^3/uL (150-450)
[2025-03-22 15:16] LABS: ESTIMATED AVERAGE GLUCOSE 114.0 MG/DL (60-110)
== END ==
LOC: M SFHCADAM 08:46
PROVIDERS: ATTEND Family Medicine
DX: Z95.0 Presence of cardiac pacemaker (principal); E78.2 Mixed hyperlipidemia; I49.5 Sick sinus syndrome; R73.03 Prediabetes